=== PATIENT | male | born 1950 | race Caucasian/White ===

== ENCOUNTER 2019-10-12 09:12 | Outpatient (CLI) | payer OTHER, MEDICARE ==
[2019-10-12] MEDS ORDERED: BARIUM SULFATE 135 ML SUSP.RECON (E-Z-HD) PO ONE ×2 (09:49→10:39)
== END 2019-10-12 19:28 | disposition home or self-care (01) ==
LOC: SRD 09:12
PROVIDERS: ATTEND Internal Medicine
DX: R05 Cough (principal); R13.10 Dysphagia, unspecified
CPT/HCPCS: 74220-TC